=== PATIENT | male | born 1965 | race Asian ===

== ENCOUNTER 2017-11-08 08:38 | Inpatient (IN) | payer OTHER ==
[~2017-11-08] VITALS: Ht 172.7 cm; Wt 85.6 kg
[2017-11-08] MEDS ORDERED: ASPIRIN 81 MG TABLET CHEW ONE (08:55)
[2017-11-08] MEDS ORDERED: NAPR220T77 PO (08:59)
[2017-11-08] MEDS ORDERED: SODIUM CHLORIDE FLUSH 10ML SYR IVF ONE (09:00)
[2017-11-08] MEDS ORDERED: NITROGLYCERIN SINGLE TAB 0.4 MG SL PRN (09:00)
[2017-11-08] MEDS ORDERED: ASPIRIN 81 MG TABLET CHEW PO ONE (09:00)
[2017-11-08] MEDS ORDERED: NITROGLYCERIN OINT 2%, 1GM TP ONE ×2 (09:00→09:04)
[2017-11-08 09:31] LABS: BASOPHILS # (AUTO) 0.05 x10^3/uL (0-0.1); BASOPHILS % (AUTO) 1 % (0-1); EOSINOPHILS # (AUTO) 0.24 x10^3/uL (0-0.4); EOSINOPHILS % (AUTO) 3 % (1-7); LYMPHOCYTES # (AUTO) 1.54 x10^3/uL (1-3.4); LYMPHOCYTES % (AUTO) 21 % (22-44); MD NO; MEAN CORPUSCULAR HEMOGLOBIN 30.4 pg (27.5-34.5); MEAN CORPUSCULAR HGB CONC 33.4 g/dL (33.2-36.2); MEAN CORPUSCULAR VOLUME 91.1 fL (81-97); MEAN PLATELET VOLUME 8.6 fL (7.4-10.4); MONOCYTES # (AUTO) 0.52 x10^3/uL (0.2-0.8); MONOCYTES % (AUTO) 7 % (2-9); NEUTROPHILS # (AUTO) 5.14 x10^3/uL (1.8-6.8); NEUTROPHILS % (AUTO) 69 % (42-75); PLATELET COUNT 236 x10^3/uL (130-400); RED BLOOD COUNT 5.26 x10^6/uL (4.38-5.82); RED CELL DISTRIBUTION WIDTH 13.1 % (9.4-14.8)
[2017-11-08 09:36] LABS: INTERNATIONAL NORMALIZED RATIO 1.02 (0.93-1.1); PROTHROMBIN TIME 10.5 Seconds (9.6-11.5)
[2017-11-08 09:40] LABS: ALBUMIN 3.9 g/dL (3.4-5.0); ANION GAP 4 mmol/L (5-15); CALCIUM 8.4 mg/dL (8.5-10.1); CHLORIDE 106 mmol/L (98-107); CREATININE 1.35 mg/dL (0.7-1.3)
[2017-11-08 09:47] LABS: TROPONIN I 0.126 ng/mL (0.000-0.045)
[2017-11-08] MEDS ORDERED: HEPARIN 25,000 UNITS/500ML PMX 500 ML IV PRN ×2 (10:30→18:00)
[2017-11-08] MEDS ORDERED: HEPARIN 5,000 UNITS/ML, 1ML IV PRN (10:30)
[2017-11-08] MEDS ORDERED: HEPARIN 5,000 UNITS/ML, 1ML IV ONE ×2 (10:30→18:00)
[2017-11-08] MEDS ORDERED: HEPARIN 25,000 UNITS/500ML PMX 500 ML ONE (10:37)
[2017-11-08] MEDS ORDERED: HEPARIN 5,000 UNITS/ML, 1ML ONE (10:37)
[2017-11-08] MEDS ORDERED: SODIUM CHLORIDE 0.9% 1,000 ML IV ONE (11:34)
[2017-11-08] MEDS: NITROGLYCERIN OINT 2%, 1GM TP SCH ×2 (12:11→18:42)
[2017-11-08 12:21] LABS: CHOL/HDL RATIO 5.2; LDL/HDL RATIO 3.5 (0.5-3.0)
[2017-11-08] MEDS ORDERED: ASPI-621 PO (12:53)
[2017-11-08 13:32] VITALS: BP 131/101
[2017-11-08] MEDS ORDERED: NITROGLYCERIN 0.4 MG/SPRAY SL PRN (14:30)
[2017-11-08] MEDS ORDERED: NITROGLYCERIN 0.4 MG BOTTLE (25 TABS) SL PRN (14:30)
[2017-11-08 17:26] LABS: BASOPHILS # (AUTO) 0.05 x10^3/uL (0-0.1); BASOPHILS % (AUTO) 1 % (0-1); EOSINOPHILS # (AUTO) 0.31 x10^3/uL (0-0.4); EOSINOPHILS % (AUTO) 3 % (1-7); LYMPHOCYTES # (AUTO) 2.92 x10^3/uL (1-3.4); LYMPHOCYTES % (AUTO) 30 % (22-44); MD NO; MEAN CORPUSCULAR HEMOGLOBIN 30.8 pg (27.5-34.5); MEAN CORPUSCULAR HGB CONC 33.7 g/dL (33.2-36.2); MEAN CORPUSCULAR VOLUME 91.4 fL (81-97); MEAN PLATELET VOLUME 8.5 fL (7.4-10.4); MONOCYTES # (AUTO) 0.89 x10^3/uL (0.2-0.8); MONOCYTES % (AUTO) 9 % (2-9); NEUTROPHILS # (AUTO) 5.73 x10^3/uL (1.8-6.8); NEUTROPHILS % (AUTO) 58 % (42-75); PLATELET COUNT 260 x10^3/uL (130-400); RED BLOOD COUNT 5.15 x10^6/uL (4.38-5.82); RED CELL DISTRIBUTION WIDTH 13.2 % (9.4-14.8)
[2017-11-08 17:49] LABS: HEMOGLOBIN A1C 5.8 % (4.2-6.3)
[2017-11-08] MEDS: CARVEDILOL 6.25 MG TABLET PO SCH (18:42)
[2017-11-08 19:42] VITALS: BP 107/68
[2017-11-08] MEDS: HEPARIN 5,000 UNITS/ML, 1ML IV PRN (20:06)
[2017-11-08] MEDS: ATORVASTATIN 80 MG TABLET PO SCH (21:42)
[2017-11-08] MEDS ORDERED: ACETAMINOPHEN 325 MG TABLET PO PRN (22:00)
[2017-11-09 01:30] VITALS: BP 95/52
[2017-11-09] MEDS: NITROGLYCERIN OINT 2%, 1GM TP SCH ×3 (01:45→14:00)
[2017-11-09 01:53] LABS: BASOPHILS # (AUTO) 0.05 x10^3/uL (0-0.1); BASOPHILS % (AUTO) 1 % (0-1); EOSINOPHILS # (AUTO) 0.45 x10^3/uL (0-0.4); EOSINOPHILS % (AUTO) 4 % (1-7); LYMPHOCYTES # (AUTO) 3.73 x10^3/uL (1-3.4); LYMPHOCYTES % (AUTO) 35 % (22-44); MD NO; MEAN CORPUSCULAR HEMOGLOBIN 30.3 pg (27.5-34.5); MEAN CORPUSCULAR HGB CONC 33.5 g/dL (33.2-36.2); MEAN CORPUSCULAR VOLUME 90.4 fL (81-97); MEAN PLATELET VOLUME 8.6 fL (7.4-10.4); MONOCYTES # (AUTO) 0.73 x10^3/uL (0.2-0.8); MONOCYTES % (AUTO) 7 % (2-9); NEUTROPHILS # (AUTO) 5.78 x10^3/uL (1.8-6.8); NEUTROPHILS % (AUTO) 54 % (42-75); PLATELET COUNT 254 x10^3/uL (130-400); RED BLOOD COUNT 5.11 x10^6/uL (4.38-5.82); RED CELL DISTRIBUTION WIDTH 12.8 % (9.4-14.8)
[2017-11-09 02:06] LABS: ALANINE AMINOTRANSFERASE 51 U/L (12-78); ALBUMIN 3.7 g/dL (3.4-5.0); ANION GAP 9 mmol/L (5-15); CALCIUM 8.7 mg/dL (8.5-10.1); CHLORIDE 107 mmol/L (98-107); CREATININE 1.11 mg/dL (0.7-1.3)
[2017-11-09 02:16] LABS: ALKALINE PHOSPHATASE 40 U/L (45-117); BILIRUBIN,TOTAL 0.6 mg/dL (0.2-1.0); TOTAL PROTEIN 7.1 g/dL (6.4-8.2)
[2017-11-09] MEDS: CARVEDILOL 6.25 MG TABLET PO SCH ×2 (06:00→17:51)
[2017-11-09] MEDS: ASPIRIN 81 MG TABLET EC PO SCH (06:00)
[2017-11-09 06:03] VITALS: BP 102/58
[2017-11-09 07:10] VITALS: BP 106/67
[2017-11-09] MEDS: HEPARIN 5,000 UNITS/ML, 1ML IV PRN (09:02)
[2017-11-09] MEDS ORDERED: TICAGRELOR 90 MG TABLET ONE (13:09)
[2017-11-09] MEDS ORDERED: FENTANYL PF 100 MCG/2ML ONE (13:09)
[2017-11-09] MEDS ORDERED: HEPARIN 1,000 UNITS/ML, 10ML ONE (13:09)
[2017-11-09] MEDS ORDERED: MIDAZOLAM 1 MG/ML, 5ML ONE (13:09)
[2017-11-09] MEDS ORDERED: BIVALIRUDIN 250 MG ONE (13:09)
[2017-11-09] MEDS ORDERED: VERAPAMIL 2.5 MG/ML, 2ML ONE (13:09)
[2017-11-09] MEDS ORDERED: LIDOCAINE 2%, 2ML ONE (13:40)
[2017-11-09] MEDS ORDERED: PRASUGREL 10 MG TABLET ONE (14:08)
[2017-11-09] MEDS ORDERED: BIVALIRUDIN 250 MG in DEXTROSE 5% 50 ML IV SCH (14:09)
[2017-11-09 17:51] VITALS: BP 128/85
[2017-11-09 19:58] VITALS: BP 115/72
[2017-11-09] MEDS: ATORVASTATIN 80 MG TABLET PO SCH (20:53)
[2017-11-10 02:37] VITALS: BP 109/80
[2017-11-10 05:23] LABS: ALBUMIN 3.5 g/dL (3.4-5.0); ANION GAP 9 mmol/L (5-15); CALCIUM 8.8 mg/dL (8.5-10.1); CHLORIDE 109 mmol/L (98-107)
[2017-11-10 05:24] LABS: CREATININE 1.11 mg/dL (0.7-1.3)
[2017-11-10] MEDS: CARVEDILOL 6.25 MG TABLET PO SCH ×2 (05:39→18:02)
[2017-11-10] MEDS: ASPIRIN 81 MG TABLET EC PO SCH (05:39)
[2017-11-10 07:56] VITALS: BP 137/74
[2017-11-10] MEDS: PRASUGREL 10 MG TABLET PO SCH (08:11)
[2017-11-10] MEDS: LISINOPRIL 5 MG TABLET PO SCH (08:13)
[2017-11-10 13:15] VITALS: BP 113/77
[2017-11-10 18:02] VITALS: BP 125/75
[2017-11-10 19:06] VITALS: BP 108/69
[2017-11-10] MEDS: ATORVASTATIN 80 MG TABLET PO SCH (20:07)
[2017-11-11 01:31] VITALS: BP 105/65
[2017-11-11] MEDS: CARVEDILOL 6.25 MG TABLET PO SCH (06:04)
[2017-11-11] MEDS: ASPIRIN 81 MG TABLET EC PO SCH (06:04)
[2017-11-11 07:50] VITALS: BP 94/55
[2017-11-11] MEDS ORDERED: ASPI-621 PO (07:57)
[2017-11-11] MEDS ORDERED: PRAS10TA4 PO (07:57)
[2017-11-11] MEDS ORDERED: ATOR-2 PO (07:57)
[2017-11-11] MEDS ORDERED: CARV6.2512 PO (07:57)
[2017-11-11] MEDS ORDERED: LISI5TAB7 PO (07:57)
[2017-11-11] MEDS: LISINOPRIL 5 MG TABLET PO SCH (08:44)
[2017-11-11] MEDS: PRASUGREL 10 MG TABLET PO SCH (08:44)
== END 2017-11-11 09:09 | disposition home or self-care (01) | DRG 246 ==
LOC: ED 09:41 → EDIP 10:16 → 5SO 11:36
PROVIDERS: ADMIT Internal Medicine Pulmonary Disease; ATTEND Internal Medicine Pulmonary Disease
PROC: 027034Z Dilation of Coronary Artery, One Artery with Drug-eluting Intraluminal Device, Percutaneous Approach (ICD-10-PCS; principal; 2017-11-09)
PROC: B2151ZZ Fluoroscopy of Left Heart using Low Osmolar Contrast (ICD-10-PCS; 2017-11-09)
PROC: 4A023N7 Measurement of Cardiac Sampling and Pressure, Left Heart, Percutaneous Approach (ICD-10-PCS; 2017-11-09)
PROC: B2111ZZ Fluoroscopy of Multiple Coronary Arteries using Low Osmolar Contrast (ICD-10-PCS; 2017-11-09)
DX: T82.855A Stenosis of coronary artery stent, initial encounter (principal); I21.4 Non-ST elevation (NSTEMI) myocardial infarction; I47.2 Ventricular tachycardia; I50.20 Unspecified systolic (congestive) heart failure; I25.110 Atherosclerotic heart disease of native coronary artery with unstable angina pectoris; I11.0 Hypertensive heart disease with heart failure; I44.7 Left bundle-branch block, unspecified; I25.5 Ischemic cardiomyopathy; E78.5 Hyperlipidemia, unspecified; E87.6 Hypokalemia; E74.39 Other disorders of intestinal carbohydrate absorption; Y83.8 Other surgical procedures as the cause of abnormal reaction of the patient, or of later complication, without mention of misadventure at the time of the procedure; D72.829 Elevated white blood cell count, unspecified; E66.3 Overweight; Z68.28 Body mass index [BMI] 28.0-28.9, adult; I25.2 Old myocardial infarction; Z79.82 Long term (current) use of aspirin; Z82.49 Family history of ischemic heart disease and other diseases of the circulatory system; Z83.3 Family history of diabetes mellitus; Z87.891 Personal history of nicotine dependence; Z91.14 Patient's other noncompliance with medication regimen; Y92.89 Other specified places as the place of occurrence of the external cause
CPT/HCPCS: 36415; 71045; 80048; 80053; 80061; 82040; 83036; 83735; 84100; 84443; 84484; 85025; 85520; 85610; 85730; 93005; 93306; 93458; 96365; 96374; 99156; 99157; C1760; C1769; C1894; C9600; J0583; J1644; J2250; J3010; J3490; C1874; C1887; J7030; Q9967